=== PATIENT | male | born 1985 | race Two or more races ===

== ENCOUNTER 2017-07-19 06:40 | Emergency (ER) | payer MEDICAID ==
[~2017-07-19] VITALS: Ht 160 cm; Wt 85.3 kg
[2017-07-19 06:44] VITALS: Ht 160 cm; Wt 85.3 kg
[2017-07-19 08:57] VITALS: BP 121/78
== END 2017-07-19 08:57 | disposition home or self-care (01) ==
LOC: ED 06:40
DX: J40 Bronchitis, not specified as acute or chronic (principal)
CPT/HCPCS: J7512; J7613; J7644; Q0092